=== PATIENT | male | born 1990 | race Caucasian/White ===

== ENCOUNTER 2022-10-23 12:12 | Emergency (ER) | payer OTHER, SELFPAY ==
[2022-10-23 14:06] VITALS: BP 167/106; PULSE 76; RESP 18; TEMP 36.9; O2SAT 99; BMI 29.5
--- NOTE | 2022-10-23 14:06 | ED_ITS ---
HPI - Back Pain/Injury General Chief Complaint: Back Pain/Injury Stated Complaint: back pain Time Seen by Provider: 10/23/22 14:09 Source: patient, RN notes reviewed and old records reviewed Mode of arrival: ambulatory History of Present Illness HPI Narrative: 32-year-old male past medical history of herniated disc presenting to the ED complaining of acute on chronic low back pain radiating down right lower extremity since Sunday s/p playing at [employer] with his children. Denies direct injury/trauma/fall, numbness/tingling, weakness, urinary incontinence/retention, hematuria. Has not taken anything for pain MD elicited complaint: back pain Related Data Previous Rx's Medication Instructions Recorded acetaminophen 500 mg tablet 500 mg PO Q6H PRN fever or pain 10/23/22 (Tylenol Extra Strength) #14 tabs cyclobenzaprine 5 mg tablet 5 mg PO Q8H PRN pain (scale score 10/23/22 7-10) 5 days #14 tabs lidocaine 5 % topical patch 1 patch topical DAILY PRN pain #30 10/23/22 (Lidoderm) ea naproxen 500 mg tablet 500 mg PO BID PRN pain 10 days #20 10/23/22 tabs Allergies Allergy/AdvReac Type Severity Reaction Status Date / Time No Known Allergies Allergy Verified 10/23/22 14:10 Review of Systems Review of Systems: Constitutional: No Fever, No Chills ENT/Mouth: No Ear Pain, No Nasal Congestion, No Sinus Pain, No sore throat, No Rhinorrhea, No Swallowing Difficulty Cardiovascular: No Chest Pain, No SOB Respiratory: No Cough, No Sputum, No Wheezing Gastrointestinal: No Nausea, No Vomiting, No Diarrhea, No Constipation, No Abdominal pain Genitourinary: No Dysuria, No Urinary Frequency, No Hematuria, No Urinary Incontinence/retention, No Flank Pain Musculoskeletal: +joint pain, No Myalgias, No Joint Swelling Skin: No Skin Lesions, No rash Neuro: No Weakness, No Numbness, No Paresthesias Yes all other systems are reviewed and are negative Constitutional: Constitutional: Reports as per [facility] Past Medical History Attestation statement: The following information was validated with the patient. Physical Exam Vital Signs: Vital Signs: Last Vital Signs Temp 98.5 F 10/23/22 14:06 Pulse 76 10/23/22 14:06 Resp 18 10/23/22 14:06 BP 153/85 H 10/23/22 14:16 Pulse Ox 99 10/23/22 14:06 O2 Del Method Room Air 10/23/22 14:06 BMI result Body Mass Index 29.5 Const: General: cooperative, healthy appearing and no acute distress Orientation/consciousness: patient oriented x3 Limitations: no limitations HEENT: Head: Yes normal to inspection and Yes atraumatic Ears: hearing grossly normal bilaterally General nose exam: Normal external nose present Face and sinus: Yes normal facial exam Eyes: General: appearance normal, both eyes and all related structures EOM: EOMs intact bilaterally Neck: Neck: Yes normal visual inspection and Yes no meningeal signs Resp: Effort & Inspection: normal respiratory effort and no respiratory distress Auscultation: clear to auscultation bilaterally Cardio: Rate: regular rate Heart sounds: S1 normal heart sound present and S2 normal heart sound present GI: Inspection: Yes normal to inspection Palpation (GI): Soft to palpation, nontender, no guarding and not rigid : General: Yes no CVA tenderness Back/Spine/Pelvis: Other: No midline cervical/thoracic/lumbar spinous tenderness/step-off or deformity. Pain not reproducible on palpation. Reproducible with movement Back: no CVA tenderness Skin: Rashes: no rashes Wounds: no wounds Neuro: Other: Strength intact throughout. No saddle anesthesia. Sensation intact to light touch. Neurovascular intact distally General: patient oriented x3, gait normal, tone normal, moves all extremities, no meningeal signs and no focal motor deficits Gait exam (Neuro): Normal gait present Extrem: General: Yes normal to inspection Medical Decision Making Medical Decision Making MDM Narrative: 32-year-old male past medical history of herniated disc presenting to the ED complaining of acute on chronic low back pain radiating down right lower extremity since Sunday s/p playing at [employer] with his children. On exam vital signs stable, NAD, nontoxic appearing, no midline spinous tenderness or or red flag symptoms. Ambulating with steady gait. Concern for MSK pain/strain with radiculopathy. Low suspicion for cauda equina/cord compression, epidural abscess, renal stone/pyelo Plan: Pain management Please refer to course for remaining clinical decision making, interpretation of labs/imaging results, and discussions with consultants and/or family members. Differential Diagnosis Differential Diagnoses: The differential diagnosis associated with the presentation includes As above Admission/Observation Consideration of admission/observation: Escalation of care including admission/observation considered Lab Data MDM Lab Attestation statement: I reviewed the patient's lab results. Radiology Impression Discussion of test interpretation with radiology: I have reviewed the radiologist's reading. External Record Review External record reviewed: Inpatient record, Office record, Outpatient record, Prior outpatient labs, Prior outpatient radiology, Primary care record and Outside ED record Discharge Plan Discharge Clinical Impression: Lumbar radiculopathy Patient Disposition: Home, Self-Care Instructions: Acute Low Back Pain (ED) Additional Instructions: Your pain is likely musculoskeletal Flexeril is a muscle relaxer, take at night as it makes you drowsy, do not drive, drink alcohol, or operate machinery while taking it Naproxen as an anti-inflammatory / pain medication, take with food Lidoderm patches are numbing patches, apply to painful area In addition take Tylenol at home If symptoms persist or worsen, pain becomes unbearable, you developed urinary retention or incontinence, or weakness return to the ED Prescriptions: New acetaminophen [Tylenol Extra Strength] 500 mg tablet 500 mg PO Q6H PRN (Reason: fever or pain) Qty: 14 0RF lidocaine [Lidoderm] 5 % adhesive patch,medicated 1 patch topical DAILY MDD remove after 12 hours PRN (Reason: pain) Qty: 30 0RF Rx Instructions: leave on most painful area for up to 12 hrs naproxen 500 mg tablet 500 mg PO BID PRN (Reason: pain) 10 Days Qty: 20 0RF cyclobenzaprine 5 mg tablet 5 mg PO Q8H PRN (Reason: pain (scale score 7-10)) 5 Days Qty: 14 0RF Referrals: Physician,None [Primary Care Provider] - Stand Alone Forms: Work/School Release
[2022-10-23 14:16] VITALS: BP 153/85
== END 2022-10-23 14:30 | disposition home or self-care (01) ==
PROVIDERS: Emergency Provider Emergency Medicine
DX: M54.16 Radiculopathy, lumbar region (principal); M54.50 Low back pain, unspecified
CPT/HCPCS: 99282; 99283

== ENCOUNTER 2024-08-08 09:18 | Emergency (ER) | payer SELFPAY ==
[2024-08-08 09:25] VITALS: BP 145/86; PULSE 98; RESP 19; TEMP 36.6; O2SAT 98; BMI 30.2
--- NOTE | 2024-08-08 09:54 | ED.GENADULT ---
HPI - General Adult General Chief complaint: General Medical Stated complaint: L Side Face Tongue Numbness Time Seen by Provider: 08/08/24 09:32 Source: patient and family () Mode of arrival: ambulatory Limitations: language barrier ( Patient speaks [place] and [place], speaks [place]ian only, [facility] [place] brakes [place] History of Present Illness ED Provider: Dr. Jacques Barnett HPI narrative: 34-year-old male with no significant past medical history who presents emergency department for evaluation of left-sided facial droop, numbness with symptoms starting yesterday morning at 05:00 hours upon awakening from sleep. Patient denies any facial pain. He denies headache, nausea, vomiting, change in his vision, numbness or weakness of his extremities. Related Data Previous Rx's ?Medication ?Instructions ?Recorded acetaminophen 500 mg tablet 500 mg PO Q6H PRN fever or pain 10/23/22 (Tylenol Extra Strength) #14 tabs cyclobenzaprine 5 mg tablet 5 mg PO Q8H PRN pain (scale score 10/23/22 7-10) 5 days #14 tabs lidocaine 5 % topical patch 1 patch topical DAILY PRN pain #30 10/23/22 (Lidoderm) ea naproxen 500 mg tablet 500 mg PO BID PRN pain 10 days #20 10/23/22 tabs prednisone 20 mg tablet 60 mg (3 x 20 mg) PO DAILY 7 days 08/08/24 #21 tabs valacyclovir 1 gram tablet 1,000 mg PO TID 7 days #21 tabs 08/08/24 (Valtrex) Allergies Allergy/AdvReac Type Severity Reaction Status Date / Time No Known Allergies Allergy Verified 08/08/24 09:28 Review of Systems Review of Systems: Yes all other systems are reviewed and are negative [facility] Past Medical History [facility] Narrative: Social history: The patient is in his is here in the emergency department with him. Patient was smokes 1/2 pack of cigarettes per day for greater than 20 years. He denies alcohol or drug use. The patient works as a mechanic and welder. Social History Social History Smoked in Last 30 Days: No Use of substances other than those prescribed or required for medical reasons: No Advance Directives: No Advance Directives Information Provided: Yes Do you have a plan to hurt others: No Plan Physical Exam ED Vital Signs: Vital Signs - 24 hr 08/08/24 09:25 Temperature 98 F Pulse Rate 98 Respiratory Rate 19 Blood Pressure 145/86 H Pulse Oximetry 98 Oxygen Delivery Method Room Air BMI result Body Mass Index 30.2 vital signs revealed a slight elevation patient was blood pressure otherwise was unremarkable Exam: General: Awake, alert in no distress Head: Normocephalic, atraumatic EENT: PERRL, Lids normal, sclera normal, conjunctiva normal, nose normal , ears normal, throat without erythema or exudates Neck: Supple, no adenopathy Lung: breath sounds symmetric, no wheezing, rales or rhonchi Chest: symmetric movement, nontender Heart: regular rate and rhythm, normal S1, S2 no murmurs or rubs Abdomen: soft, non-tender, nondistended, normal bowel sounds Back: no vertebral tenderness, no CVAT Extremities: no deformities, moves all extremities symmetrically Neuro: General:Awake, alert, oriented, normal speech Cranial nerves: Patient has a left facial droop with decreased inability to wrinkle his left forehead compared to his right, he was unable to close his eye tightly, he has decreased sensation on the left side of his face compared to his right. Cranial nerves are otherwise intact Strength: 5/5 in all extremities,moves all extremities symmetrically Cerebellar: Good [id number]-to-finger, normal rapid finger movement, normal heel to hobbs Psych: Pleasant, cooperative NIH Stroke Scale Internal: Initial- Upon Arrival Level of Consciousness: Alert Level of Consciousness Questions: Answers both questions correctly Level of Consciousness Commands: Performs both tasks correctly Best Gaze: Normal Visual: No visual loss Facial Palsy: Partial paralysis ( able to wrinkle both foreheads but left less than right) Motor Arm (Right): No drift Motor Arm (Left): No drift Motor Leg (Right): No drift Motor Leg (Left): No drift Limb Ataxia: Absent Sensory: Mild to moderate sensory loss ( decreased light touch to left side of face converted to right) Best Language: No aphasia Dysarthia: Normal Extinction and Inattention: No abnormality Score: 3 Medications Administered Discontinued Medications Generic Name Dose Route Start Last Admin Trade Name Freq PRN Reason Stop Dose Admin Prednisone 60 mg 08/08/24 09:54 08/08/24 10:15 Prednisone 20 Mg Tablet PO 08/08/24 09:55 60 mg ONCE ONE Administration Valacyclovir HCl 1,000 mg 08/08/24 09:54 08/08/24 10:15 Valacyclovir Hcl 1,000 Mg Tablet PO 08/08/24 09:55 1,000 mg ONCE ONE Administration Medical Decision Making Medical Decision Making [facility] Narrative: 34-year-old male with no significant past medical history who presents emergency department for evaluation of left-sided facial droop, numbness with symptoms starting yesterday morning at 05:00 hours upon awakening from sleep. patient had no other symptoms. Physical examination was consistent with left patient was droop where he was able to wrinkle his right forehead greater than he was low with diminished light touch on the left face compared to the right otherwise his neurologic exam was nonfocal. Differential diagnosis: Includes but is not limited to Stroke, Pittman's palsy Course: The patient's physical findings are consistent with Pittman's palsy and I did discuss this with the patient and the patient's . Patient was started on prednisone 60 mg once a day for 7 days and valacyclovir 1000 mg 3 times a day for 7 days. The patient is a mechanic and welder and I am concerned that he may have increased UV light exposure to his left eye since he cannot close his eye completely. Therefore, I gave him a work note to stay out of work for at least 1 week. He was also advised to wear a cup eye patch at night to prevent corneal abrasions and to use normal saline eyedrops solution, 2 drops every hour to his left eye to prevent corneal dryness. He was given printed and verbal instructions and discharged home. Admission/Observation Consideration of admission/observation: Escalation of care including admission/observation considered ( no) Independent Historian Clinical information obtained from an independent historian. History obtained from or confirmed by: Spouse Prescription Management I considered prescription management with: Antiviral ( valacyclovir) and Other ( anti-inflammatory steroids: Prednisone) Discharge Plan Discharge Clinical Impression: Left-sided Pittman's palsy Patient Disposition: Home, Self-Care Instructions: Pittman Palsy (ED) Additional Instructions: Your left sided facial weakness and numbness is caused by inflammation of the facial nerve. This is called Pittman's palsy. Sometimes the symptoms can last 2-4 weeks but should get better over time. The treatment is to start you on an anti-inflammatory steroid called prednisone and an antiviral medication called valacyclovir Take prednisone 20 mg pills, 3 pills once a day for 7 days. While you ?are taking prednisone, do not take any NSAIDs (Motrin, Advil, ibuprofen, Aleve, naproxen). Take valacyclovir 1000 mg 3 times a day for 7 days. When you go to [facility] your medications ask the pharmacist to recommend a saline eyedrops solution. Put 2-3 drops in your left eye every 1-2 hours while you are awake to keep the eye moist since you can not blink. Also ask the pharmacist where you can get a cup eye patch. Wear the cup eye patch at night to prevent scratching your eye. Since you are not able to close your eye, I do not think that you can use a welding torch therefore I am giving you a note to stay out of work for 1 week. Follow-up with your doctor in 2 days. Please return to the emergency department if your symptoms get worse or if you develop any symptoms that are concerning to you. Prescriptions: New prednisone 20 mg tablet 60 mg PO DAILY 7 Days Qty: 21 0RF valacyclovir [Valtrex] 1 gram tablet 1,000 mg PO TID 7 Days Qty: 21 0RF No Action acetaminophen [Tylenol Extra Strength] 500 mg tablet 500 mg PO Q6H PRN (Reason: fever or pain) Qty: 14 0RF lidocaine [Lidoderm] 5 % adhesive patch,medicated 1 patch topical DAILY MDD remove after 12 hours PRN (Reason: pain) Qty: 30 0RF Rx Instructions: leave on most painful area for up to 12 hrs naproxen 500 mg tablet 500 mg PO BID PRN (Reason: pain) 10 Days Qty: 20 0RF cyclobenzaprine 5 mg tablet 5 mg PO Q8H PRN (Reason: pain (scale score 7-10)) 5 Days Qty: 14 0RF Stand Alone Forms: Work/School Release Interventions: ED Discharge Assessment Last Done: 08/08/24 10:13 Discharge Date/Time: 08/08/24 10:23 Print Language: Malawian
[2024-08-08 10:13] VITALS: BP 145/86; PULSE 98; RESP 19; TEMP 36.6; O2SAT 98
[2024-08-08] MEDS: predniSONE 20 MG TABLET 60 MG PO (10:15)
[2024-08-08] MEDS: valACYclovir HCL 1,000 MG TABLET 1000 MG PO (10:15)
== END 2024-08-08 10:23 | disposition home or self-care (01) ==
PROVIDERS: Emergency Provider Emergency Medicine Emergency Medical Services
DX: G51.0 Bell's palsy (principal); R29.703 NIHSS score 3
CPT/HCPCS: 99284